=== PATIENT | female | born 1995 | race Asian ===

== ENCOUNTER 2017-06-06 18:47 | Emergency (ER) | payer OTHER, BC ==
[~2017-06-06 18:47] MED LIST: oxyCODONE/Acetamin 5/325 MG* TAB PO SCH
[2017-06-06 19:15] VITALS: BP 113/72
[2017-06-06] MEDS ORDERED: NS 0.9% 1000 ML* 1,000 ML IV ONE (19:19)
[2017-06-06] MEDS ORDERED: Morphine INJ* 4 MG/ML 1 ML CARPUJECT IV ONE (19:19)
[2017-06-06 19:46] LABS: Hematocrit 40 % (35-47); Hemoglobin 13.7 g/dl (12.0-16.0); Mean Corpuscular HGB Conc 34 g/dl (31-36); Mean Corpuscular Hemoglobin 30 pg (27-31); Mean Corpuscular Volume 88 fL (80-97); Mean Platelet Volume 8 um3 (7.4-10.4); Red Blood Count 4.53 10^6/ul (4.0-5.4); Red Cell Distribution Width 13 % (10.5-15); White Blood Count 13.4 10^3/ul (3.5-10.8)
--- NOTE | 2017-06-06 19:50 | RAD ---
INDICATION: Pain after elbow trauma COMPARISON: None. TECHNIQUE: 2 views left elbow. REPORT: The trochlea is displaced anteriorly from the olecranon. There is lucency at the coronoid process on the lateral view. There is no significant visible joint effusion. IMPRESSION: Anterior displacement of the trochlea from the olecranon likely with nondisplaced fracture of the coronoid process.
[2017-06-06] MEDS ORDERED: KETAMINE HCL* 50 MG/ML 10 ML VIAL ONE (20:17)
[2017-06-06] MEDS ORDERED: fentaNYL* 50 MCG/ML 2 ML VIAL (100 MCG VIAL) ONE (20:17)
[2017-06-06] MEDS ORDERED: Propofol* 10 MG/ML 20 ML BTL IV PUSH ONE (20:18)
[2017-06-06] MEDS ORDERED: Lidocaine 2% PF * 5 ML VIAL ONE (20:18)
[2017-06-06] MEDS ORDERED: Ondansetron INJ* 2 MG/ML VIAL IV PRN (20:53)
[2017-06-06] MEDS ORDERED: Acetaminophen TAB* 325 MG PO PRN (20:53)
[2017-06-06] MEDS ORDERED: DiMENhydriNATE IV* 50 MG/ML VIAL IV PUSH PRN (20:53)
--- NOTE | 2017-06-06 23:53 | ED ---
Jacquelyn Luna Rebecca, scribed for Jose Luis Contreras on 06/06/17 at 1935 . Upper Extremity Pain - HPI Summary HPI Summary: Pt is a 22 y/o F who presents to ED c/o L elbow pain. At approximately 1730 today the pt was running when she fell and landed on the elbow. She suspects a dislocation and current pain is currently moderate, ranked 7/10 and described as throbbing/dull. Sx aggravated by movement, alleviated by nothing. - History of Current Complaint Chief Complaint: EDExtremityUpper Stated Complaint: LT ELBOW INJURY Time Seen by Provider: 06/06/17 19:25 Hx Obtained From: Patient Mechanism Of Injury: Fall From A Standing Position Onset/Duration: Started Hours Ago, Still Present Severity Currently: Moderate Pain Location: Elbow - Left Character: Dull, Throbbing Aggravating Factor(s): Movement Alleviating Factor(s): Nothing - Allergies/Home Medications Allergies/Adverse Reactions: Allergies Allergy/AdvReac Type Severity Reaction Status Date / Time Apple Allergy Hives Verified 06/06/17 19:12 Home Medications: Home Medications NK [No Home Medications Reported] 06/06/17 [History Confirmed 06/06/17] PMH/Surg Hx/FS Hx/Imm Hx Previously Healthy: Yes Endocrine/Hematology History: Denies: Hx Diabetes Cardiovascular History: Denies: Hx Hypertension, Hx Pacemaker/ICD History: Denies: Hx Renal Disease Sensory History: Denies: Hx Hearing Aid Psychiatric History: Denies: Hx Panic Disorder - Surgical History Surgery Procedure, Year, and Place: RIGHT ACL RECONSTRUCTION 2009 - Immunization History Date of Tetanus Vaccine: utd Date of Influenza Vaccine: 2015 Immunizations Up to Date: Yes Infectious Disease History: No Infectious Disease History: Denies: Traveled Outside the [place] in Last 30 Days - Family History Known Family History: Negative: Hypertension - Social History Occupation: Student Alcohol Use: Weekly Substance Use Type: Reports: None Smoking Status (MU): Never Smoked Tobacco Review of Systems Negative: Fever Positive: Arthralgia - L elbow pain All Other Systems Reviewed And Are Negative: Yes Physical Exam - Summary Physical Exam Summary: Appearance: Well appearing, no pain distress Skin: warm, dry, reflects adequate perfusion Head/face: normal Eyes: EOMI, ELI ENT: normal Neck: supple, nontender Respiratory: CTA, breath sounds present Cardiovascular: RRR, pulses symmetrical Abdomen: nontender, soft Bowel: present Musculoskeletal: swelling, tenderness and deformity at the L elbow with no neurovascular deficits Neuro: normal, sensory motor intact, A&Ox3 Triage Information Reviewed: Yes Vital Signs On Initial Exam: Initial Vitals Temp Pulse Resp BP Pulse Ox 99.9 F 58 18 113/72 100 06/06/17 19:11 06/06/17 19:11 06/06/17 19:11 06/06/17 19:11 06/06/17 19:11 Vital Signs Reviewed: Yes - [place] Coma Scale Coma Scale Total: 15 Diagnostics - Vital Signs Vital Signs Temp Pulse Resp BP Pulse Ox 06/06/17 19:11 99.9 F 58 18 113/72 100 - Laboratory Result Diagrams: 06/06/17 19:25 Lab Statement: Any lab studies that have been ordered have been reviewed, and results considered in the medical decision making process. - Radiology Elbow XR Xray Interpretation: Positive (See Comments) - Anterior displacement of the trochlea from the olecranon likely with nondisplaced fracture of the coronoid process. ED physician reviewed radiology report and agrees. Radiology Interpretation Completed By: Radiologist Course/Dx - Course Assessment/Plan: Pt is a 22 y/o F who presents to ED c/o L elbow pain. At approximately 1730 today the pt was running when she fell and landed on the elbow. She suspects a dislocation and current pain is currently moderate, ranked 7/10 and described as throbbing/dull. Sx aggravated by movement, alleviated by nothing. Elbow XR reveals anterior displacement of the trochlea from the olecranon likely with nondisplaced fracture of the coronoid process. In the ED course, pt received fluids and morphine. Discussed care of pt with Dr. Christianson who will evaluate the pt in the ED. Upon evaluation, she has decided to bring the pt to OR. She will be admitted with Dx of L elbow dislocation. She understands and agrees. - Diagnoses Provider Diagnoses: Dislocation of left elbow - Physician Notifications Discussed Care of Patient With: Sachin Christianson Time Discussed With Above Provider: 19:45 Instructed by Provider To: Other - Will evaluate pt in the ED. Discharge - Discharge Plan Condition: Stable Disposition: ADMITTED TO [facility] Referrals: Latha Omalley MD [Primary Care Provider] - The documentation as recorded by the scribe, DiFabio,Isamar accurately reflects the service I personally performed and the decisions made by me, Jose Luis Contreras.
== END 2017-06-06 20:18 | disposition short-term general hospital (02) ==
LOC: ED 18:47
DX: S53.105A Unspecified dislocation of left ulnohumeral joint, initial encounter (principal); M25.522 Pain in left elbow; W19.XXXA Unspecified fall, initial encounter; Y93.9 Activity, unspecified; Y92.9 Unspecified place or not applicable
CPT/HCPCS: 36415; 85025; 99282; A9270-GY; J2270; J2704; J3010